=== PATIENT | male | born 1970 | race Caucasian/White ===

== ENCOUNTER → 2020-07-26 | Outpatient (CLI) | payer MEDICARE, OTHER ==
[~2020-07-26] MED LIST: ACYCLOVIR400 MG PO; ARICEPT10 MG PO; LIORESAL TAB 1010 MG PO; NEURONTIN 400400 MG PO; VITAMIN D3 PO
== END ==
LOC: MRI 08:30
DX: G35 Multiple sclerosis (principal); Z79.899 Other long term (current) drug therapy; Z90.89 Acquired absence of other organs
CPT/HCPCS: 70553; 96523; A9577; J1642

== ENCOUNTER → 2020-09-29 | Outpatient (CLI) | payer MEDICARE, OTHER | LOC: LBRF 15:26 | DX: N39.0 Urinary tract infection, site not specified (principal) | CPT/HCPCS: 81001; 87077; 87086; 87186 ==

== ENCOUNTER → 2020-10-17 | Outpatient (CLI) | payer MEDICARE, OTHER | LOC: RAD 08:00 | DX: G91.9 Hydrocephalus, unspecified (principal) ==